=== PATIENT | female | born 2000 | race Two or more races ===

== ENCOUNTER 2024-05-12 13:33 | Emergency (ER) | payer OTHER ==
[2024-05-12 13:53] VITALS: BP 104/65; PULSE 73; RESP 18; TEMP 99.3
[2024-05-12] MEDS ORDERED: AMOX TR/POT CLAV 875MG/125MG TABLETS (FP) ONE (15:28)
[2024-05-12] MEDS: AMOX TR/POT CLAV 875MG/125MG TABLETS (FP) PO ONE (15:32)
== END 2024-05-12 15:58 | disposition home or self-care (01) ==
LOC: JERFT 13:33
DX: S61.451A Open bite of right hand, initial encounter (principal); S00.83XA Contusion of other part of head, initial encounter; H11.31 Conjunctival hemorrhage, right eye; M54.2 Cervicalgia; Y04.0XXA Assault by unarmed brawl or fight, initial encounter; W50.3XXA Accidental bite by another person, initial encounter
CPT/HCPCS: 99283-25